=== PATIENT | male | born 1960 | race Caucasian/White ===

== ENCOUNTER 2016-08-18 08:18 | Emergency (ER) | payer MEDICARE, BC ==
[2016-08-18 08:38] VITALS: BP 114/92
--- OUTSIDE RECORDS SUMMARY | 2016-08-18 09:05 | XMS REPORT | Continuity of Care Document ---
:1960 Author Organization [facility] ([facility]) Address [place] [address] Phone [phone] Care Team Providers Name Role Phone Sneha Earl Primary Care Provider [phone] Source Comments This disclosure is being made pursuant to the Care Everywhere program, applicable federal and state laws, and may not contain all informaitonavailable regarding this patient.[facility] ([facility]) Active Allergies and Adverse Reactions No Known Allergies Current Medications Prescription Sig. Disp. Refills Start Date End Date Status buPROPion (WELLBUTRIN Take 150 mg by mouth Active XL) 150 mg extended Every morning. release tablet 24 hour LORazepam 2 mg tablet Take 2 mg by mouth Active at bedtime. citalopram 40 mg Take 40 mg by mouth Active tablet daily. omega-3 fatty acids Take 500 mg by mouth Active (FISH OIL) [address] 2 times daily. capsule aspirin 81 mg EC Take 81 mg by mouth Active tablet daily. simvastatin 40 mg Take 40 mg by mouth Active tablet every evening. MULTIVITS-MIN/FA/LYCOP Take by mouth Active CADY/LUT (SENTRY SENIOR daily. PO) donepezil 10 mg tablet Take 10 mg by mouth Active at bedtime. GINKGO BILOBA (GINKGO Take by mouth 2 Active PO) times daily. acetaminophen 325 mg Take 2 Tabs by mouth 100 Tab 11 07/19/2013 Active tablet every 4 hours. Indications: PAIN magnesium hydroxide Take 10 mL by mouth 400 mL 11 07/19/2013 Active (MILK OF MAGNESIA daily. Indications: CONCENTRATE) 2,400 CONSTIPATION mg/10 mL suspension HYDROmorphone 2 mg Take 1-2 Tabs by 50 Tab 0 07/19/2013 Active tablet mouth every 4 hours as needed. Indications: PAIN levETIRAcetam 500 mg Take 1 Tab by mouth 3 Tab 0 07/20/2013 Active tablet 2 times daily. Indications: Seizure prophylaxis OTHER Memory Med begins Active with letter N Active Problems Problem Noted Date Ocular trauma of right eye 08/04/2013 Traumatic ecchymosis of face 07/20/2013 Acute blood loss anemia 07/20/2013 Neck pain 07/20/2013 Overview: Unable to clear c-collar, f/u with NSx for flex/ex Dementia, unspecified, without behavioral disturbance 07/19/2013 Other facial bones, closed fracture 07/15/2013 Struck by horse 07/15/2013 Head injury, unspecified 07/15/2013 Facial fracture 07/15/2013 Intracranial hemorrhage 07/15/2013 Fracture of orbital floor, blow-out, left, closed 07/15/2013 Right orbital fracture 07/15/2013 Zygomatic arch fracture 07/15/2013 Nasal bones, closed fracture 07/15/2013 Maxillary sinus fracture 07/15/2013 Fracture of frontal bone 07/15/2013 Fracture of sphenoid bone 07/15/2013 Social History Tobacco Use Types Packs/Day Years Used Date Former Smoker Smokeless Tobacco: Former User Chew Comments:quit since last year Alcohol Use Drinks/Week oz/Week Comments Yes 1 Cans of beer 1 Standard drinks or equivalent Last Filed Vital Signs Vital Sign Reading Time Taken Blood Pressure 126/75 09/02/2013 2:01 PM CDT Pulse 53 09/02/2013 2:01 PM CDT Temperature 35.1 C (95.2 F) 09/02/2013 2:01 PM CDT Respiratory Rate 16 07/20/2013 8:43 AM [employer] Height 1.778 m (5' 10") 09/02/2013 2:01 PM CDT Weight 75.342 kg (166 lb 1.6 oz) 09/02/2013 2:01 PM CDT Body Mass Index 23.83 09/02/2013 2:01 PM CDT Oxygen Saturation 93% 07/20/2013 4:00 AM [employer] Plan of Care Health Maintenance Due Date Last Done Comments HCV Screening 1960 Hepatitis B Vaccine (1 of 3 - Primary Series) 1960 Tdap Vaccine 1969 Lipid Disorder Screening 01/16/1976 MMR Vaccine 01/16/1976 Td Vaccine 01/16/1976 Colonoscopy 2008 Prostate Cancer Screening 01/16/2008 Influenza Vaccine: Seasonal (#1) 01/07/2016 Results from Last 3 Months Not on file
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
== END 2016-08-18 10:28 | disposition home or self-care (01) ==
LOC: ER 08:18
DX: S02.2XXA Fracture of nasal bones, initial encounter for closed fracture (principal); W18.30XA Fall on same level, unspecified, initial encounter; Z91.81 History of falling; Y93.9 Activity, unspecified; Y92.009 Unspecified place in unspecified non-institutional (private) residence as the place of occurrence of the external cause; Y99.9 Unspecified external cause status